=== PATIENT | male | born 2000 | race Caucasian/White ===

== ENCOUNTER 2021-01-25 08:38 | Emergency (ER) | payer BC, OTHER ==
[~2021-01-25] VITALS: Ht 177.8 cm; Wt 74.8 kg
[2021-01-25 08:44] VITALS: BP_SYST 138
[2021-01-25] MEDS ORDERED: ALPRAZolam 0.25 MG TABLET PO ONE (09:00)
--- NOTE | 2021-01-25 09:10 | NUR ---
Placed in room 6 . Placed on broadcast operations manager, blood pressure machine and pulse oximeter. To gown for exam. Side rails up. Resumed care.
--- NOTE | 2021-01-25 09:15 | NUR ---
ER at bedside examining patient.
--- NOTE | 2021-01-25 09:15 | NUR ---
Patient came into the ER due to anxiety and difficulty breathing. Patient advised that in the recent week, he has had increased stress due to his older brother. His older brother was placed on a 5150 at [facility] and dealing with such stress gave him anxiety. Mother is bedside and patient placed on monitor. Vitals within normal limits. Patient advised he has no difficulty breathing at this point.
--- NOTE | 2021-01-25 09:20 | NUR ---
radiology via bedside
[2021-01-25] MEDS ORDERED: ALPR0.5T PO (09:48)
[2021-01-25] MEDS ORDERED: PSEU30TA36 PO (09:48)
[2021-01-25 09:58] VITALS: BP_SYST 138
--- NOTE | 2021-01-25 10:00 | NUR ---
Patient given written and verbal discharge instructions and verbalizes understanding. ER MD discussed with patient the results and treatment provided. Patient in stable condition. ID arm band removed. Rx of Sudafed and Xanax given. Patient educated on pain management and to follow up with PMD. Pain Scale 0/10. Opportunity for questions provided and answered. Medication side effect fact sheet provided.
== END 2021-01-25 10:00 | disposition home or self-care (01) ==
LOC: SED 08:38
DX: F41.9 Anxiety disorder, unspecified (principal); R06.02 Shortness of breath
CPT/HCPCS: 71045; 93005; 99283